=== PATIENT | female | born 1995 | race Caucasian/White ===

== ENCOUNTER → 2017-05-21 | Outpatient (CLI) | payer BC, OTHER | LOC: LAB 14:56 | DX: N91.2 Amenorrhea, unspecified (principal) | CPT/HCPCS: 36415; 84702 ==

== ENCOUNTER → 2017-05-23 | Outpatient (CLI) | payer BC, OTHER | LOC: LAB 15:07 | DX: Z32.00 Encounter for pregnancy test, result unknown (principal) | CPT/HCPCS: 36415; 84702 ==

== ENCOUNTER 2021-05-11 15:55 | Inpatient (IN) | payer BC, OTHER ==
[~2021-05-11] VITALS: Ht 167.6 cm; Wt 79.8 kg
[~2021-05-11 15:55] MED LIST: COLACE 100MG C100 MG PO; PRENATAL 19 TA1 EACH PO
[2021-05-11 17:10] LABS: HEMOGLOBIN 12.7 gm/dl (12.3-15.3); RED BLOOD COUNT 4.43 M/UL (4.00-5.10); WHITE BLOOD COUNT 9.2 K/UL (4.5-11.0)
[2021-05-11] MEDS ORDERED: PRENATAL VITAM1 EAC3 PO (17:13)
[2021-05-12] MEDS ORDERED: IBUPROFEN600 MG PO (03:43)
[2021-05-12] MEDS ORDERED: DOCUSATE SODIU250 MG PO (03:43)
[2021-05-13 06:41] LABS: HEMOGLOBIN 12.6 gm/dl (12.3-15.3)
== END 2021-05-14 14:34 | disposition home or self-care (01) | DRG 807 ==
LOC: GENOP 15:55 → OB 16:29
PROVIDERS: Obstetrics & Gynecology; ADMIT Obstetrics & Gynecology
PROC: 10E0XZZ Delivery of Products of Conception, External Approach (ICD-10-PCS; principal; 2021-05-11)
PROC: 10907ZC Drainage of Amniotic Fluid, Therapeutic from Products of Conception, Via Natural or Artificial Opening (ICD-10-PCS; 2021-05-11)
DX: O99.344 Other mental disorders complicating childbirth (principal); Z37.0 Single live birth; F41.8 Other specified anxiety disorders; O80 Encounter for full-term uncomplicated delivery; Z3A.39 39 weeks gestation of pregnancy
CPT/HCPCS: 36415; 81001; 82800; 85014; 85018; 85025; 90715; J2001; J2590; J2795; J3010; J7120; U0003